=== PATIENT | female | born 1960 | race Caucasian/White ===

== ENCOUNTER 2019-05-30 00:59 | Inpatient (IN) | payer MEDICAID, OTHER ==
[~2019-05-30] VITALS: Ht 162.6 cm; Wt 77.6 kg
[2019-05-30] MEDS ORDERED: IV NORMAL SALINE 500 ML BAG IV ONE (01:15)
--- NOTE | 2019-05-30 01:15 | NUR ---
Saul jolly in ED - 05/30/19 at 0317 by VISH PT BACK FR CT VIA [facility] BY TELEVISION SERVICE ENGINEER
[2019-05-30] MEDS ORDERED: ONDANSETRON 4 MG/2 ML VIAL ONE (01:51)
[2019-05-30] MEDS ORDERED: HYDROMORPHONE 1 MG/1 ML DISP.SYRIN ONE (01:51)
--- NOTE | 2019-05-30 01:55 | NUR ---
PT DESCRIBED GENERALIZED PAIN AND ESPECIALLY BOTH LEGS PT ALSO STATES , "NO NO NO DILAUDID. ALLERGIC." ERMD AWARE NOTED NON ADMIN OF DILAUDID PER PT STATING HX OF ALLERGY INVESTIGATION LIEUTENANT TRANSPORTED PT VIA GURNEY TO CT
[2019-05-30 01:56] LABS: EOSINOPHILS # (AUTO) 0.3 K/uL (0.0-0.7); EOSINOPHILS % (AUTO) 6.2 % (0.0-7.0); HEMATOCRIT 25.6 % (31.2-41.9); HEMOGLOBIN 8.7 g/dL (10.9-14.3); LYMPHOCYTES # (AUTO) 0.7 K/uL (20.0-40.0); MEAN CORPUSCULAR HEMOGLOBIN 32.6 uug (24.7-32.8); MEAN CORPUSCULAR HGB CONC 34 g/dL (32.3-35.6); MEAN CORPUSCULAR VOLUME 95.9 fL (75.5-95.3); MONOCYTES # (AUTO) 0.4 K/uL (2.0-10.0); MONOCYTES % (AUTO) 8.9 % (0.0-11.0); NEUTROPHILS # (AUTO) 3.3 K/uL (1.8-8.9); NEUTROPHILS % (AUTO) 69.9 % (38.5-71.5); PLATELET COUNT (AUTO) 181 K/uL (179-408); RED BLOOD CELL COUNT(AUTO) 2.67 MIL/uL (3.63-4.92); WHITE BLOOD COUNT (AUTO) 4.8 K/uL (3.8-11.8)
[2019-05-30 01:57] LABS: BILIRUBIN,DIRECT 0.1 mg/dL (0.0-0.2); BILIRUBIN,TOTAL 0.4 mg/dL (0.2-1.0); POTASSIUM 3.8 mmol/L (3.5-5.1); TOTAL PROTEIN, SERUM 7.7 g/dL (6.4-8.2)
[2019-05-30] MEDS ORDERED: ONDANSETRON 4 MG/2 ML VIAL IV ONE (02:00)
[2019-05-30] MEDS ORDERED: HYDROMORPHONE 1 MG/1 ML DISP.SYRIN IV ONE (02:00)
[2019-05-30] MEDS ORDERED: HYDROCODONE/APAP 10-325 MG TABLET PO ONE (02:15)
--- NOTE | 2019-05-30 02:15 | NUR ---
PT BACK FR CT VIA GURNEY ACC BY PERSONAL DEVELOPMENT MENTOR
[2019-05-30 02:16] LABS: CREATININE 1.7 mg/dL (0.6-1.3)
[2019-05-30] MEDS ORDERED: HYDROCODONE/APAP 10-325 MG TABLET ONE (02:27)
[2019-05-30 02:38] LABS: *BILIRUBIN,URIN NEGATIVE (NEGATIVE); *CLARITY,URINE CLOUDY (CLEAR); *COLOR,URINE YELLOW (YELLOW); *KETONES,URINE NEGATIVE (NEGATIVE); *UROBILINOGEN,URINE 0.2 E.U./dl (NORMAL); LEUKOCYTE ESTERASE ,URINE 1+ (NEGATIVE); NITRITE, URINE NEGATIVE (NEGATIVE); PH,URINE 7.5 (5.0-8.0); UGLUCOSE TRACE (NEGATIVE)
[2019-05-30 02:46] LABS: *BLOOD, URINE TRACE (NEGATIVE)
[2019-05-30 02:50] LABS: BACTERIA,URINE MANY /HPF (NONE SEEN); SQUAMOUS EPITHELIAL CELL,UR FEW /HPF (NONE SEEN); URINE AMORPHOUS PHOSPHATES MANY /HPF
--- NOTE | 2019-05-30 03:35 | NUR ---
CINDY PAGED BY TIMI (Kimberly JOYCE)
--- NOTE | 2019-05-30 03:39 | NUR ---
Kimberly JOYCE CALLED BACK ([facility]) TALKED WITH TIMI SCHNEIDER TO ADMIT TO TELE DX: SYNCOPE/RIB FRACTURES/POSSIBLE NSTEMI PENDING CALL BACK FR [facility] AFTER SENDING CLINICALS NOT STABLE FOR TRANSFER WAITING CALL BACK FROM CHARGE NURSE TELE FOR ROOM
--- NOTE | 2019-05-30 04:45 | NUR ---
HAND OFF AND SBAR GIVEN TO YADIEL RILEY (TELE) TO ADMIT TO RM [id number] DX: NSTEMI/ RIB FRACTURES/ SYNCOPE UNDER Kimberly JOYCE BELONGINGS LIST SIGNED/CO-SIGNED PT AOX2 WITH EPISODES OF CONFUSION +RA +INDWELLING CATH W/ LEG BAG +PERMACATH TO R CHEST +PACEMAKER +G20 R AC
--- NOTE | 2019-05-30 05:10 | NUR ---
TRANSPORTED VIA [facility] BY ERICA RILEY
--- NOTE | 2019-05-30 05:50 | NUR ---
[facility] BY OSVALDO
--- NOTE | 2019-05-30 06:00 | NUR ---
PATIENT BROUGHT IN VIA GURNEY ADMITTED TO TELE WITH DX NSTEMI /SYNCOPE. PATIENT ALERT AND ORIENTED X 4. ON 02@ 1L VIA MA. PATIENT CAME IN WITH F/C WITH LEG BAG. SR WITH FIRST DEGREE ON TELE MONITOR.
[2019-05-30 06:50] VITALS: BP 142/62
[2019-05-30] MEDS ORDERED: HYDROCODONE/APAP 5-325MG TABLET PO PRN ×2 (09:00→12:30)
--- NOTE | 2019-05-30 10:30 | NUR ---
2D ECHO 55%EF. VENOUS DOPPLER BILATERAL NEGATIVE.
[2019-05-30 11:07] VITALS: BP 143/58
[2019-05-30] MEDS ORDERED: ACETAMINOPHEN 325 MG TABLET PO PRN (12:30)
[2019-05-30] MEDS ORDERED: Z GUARD REMEDY PASTE 57 GM TUBE TOP PRN (12:30)
[2019-05-30] MEDS ORDERED: ZOLPIDEM 5 MG TABLET PO PRN (12:30)
[2019-05-30] MEDS ORDERED: ONDANSETRON 4 MG/2 ML VIAL IV PRN (12:30)
[2019-05-30] MEDS ORDERED: MAGNESIUM HYDROXIDE 30 ML LIQUID UDC PO PRN (12:30)
[2019-05-30] MEDS ORDERED: CEFTRIAXONE 1 G in IV DEXTROSE 5% 50 ML IV SCH (15:00)
[2019-05-30 15:43] VITALS: BP 163/66
[2019-05-30] MEDS ORDERED: CEFT1VIA15 IV (15:58)
[2019-05-30] MEDS ORDERED: hydrALAZINE HCL 20 MG/1 ML VIAL IV PRN (16:00)
--- NOTE | 2019-05-30 17:51 | NUR ---
PREPARED FOR TRANSFER TO [facility].
--- NOTE | 2019-05-30 19:40 | NUR ---
RECEIVED PT AWAKE, ALERT AND ORIENTEDX3. PT IN NO ACUTE DISTRESS. IV INTACT. SANCHEZ INTACT. SAFETY AND COMFORT PROVIDED. WAITING FOR AMBULANZ. WILL CONTINUE TO MONITOR.
[2019-05-30 20:22] VITALS: BP 157/70
--- NOTE | 2019-05-30 20:42 | NUR ---
PT WHEELED OUT VIA GURNEY BY [facility] N[facility]. GIVEN REPORT TO Birgit ACEVEDO. DISCHARGE PAPERS AND CD GIVEN. PT IN NO ACUTE DISTRESS. PT VITAL SIGNS WITHIN NORMAL LIMIT. PT IV INTACT. SANCHEZ INTACT. PT BELONGINGS GIVEN. PT ID BAND TAKEN OFF. PT HEART MONITOR TAKEN OFF. PT STABLE.
== END 2019-05-30 20:40 | disposition short-term general hospital (02) | DRG 470 ==
LOC: ER 01:06 → TELE3 05:16
PROVIDERS: ADMIT Hospitalist; ATTEND Hospitalist
DX: I13.11 Hypertensive heart and chronic kidney disease without heart failure, with stage 5 chronic kidney disease, or end stage renal disease (principal); I21.A1 Myocardial infarction type 2; J81.1 Chronic pulmonary edema; E44.0 Moderate protein-calorie malnutrition; I07.1 Rheumatic tricuspid insufficiency; D63.1 Anemia in chronic kidney disease; N39.0 Urinary tract infection, site not specified; E87.8 Other disorders of electrolyte and fluid balance, not elsewhere classified; E11.22 Type 2 diabetes mellitus with diabetic chronic kidney disease; S22.41XA Multiple fractures of ribs, right side, initial encounter for closed fracture; N18.6 End stage renal disease; Z99.2 Dependence on renal dialysis; I37.1 Nonrheumatic pulmonary valve insufficiency; Z95.0 Presence of cardiac pacemaker; W18.39XA Other fall on same level, initial encounter; Y93.89 Activity, other specified; Y92.531 Health care provider office as the place of occurrence of the external cause; I31.3 Pericardial effusion (noninflammatory); M48.56XA Collapsed vertebra, not elsewhere classified, lumbar region, initial encounter for fracture; I44.0 Atrioventricular block, first degree; E87.1 Hypo-osmolality and hyponatremia; M51.46 Schmorl's nodes, lumbar region; M51.36 Other intervertebral disc degeneration, lumbar region; R60.1 Generalized edema
CPT/HCPCS: 36415; 70030-TC; 71045; 83605; 85025; 85730; 87040; 87086; 87400; 93005; 93307; A4663; G0378; J0360; J0696; J1170; J2405; J7040; J7060